=== PATIENT | female | born 1965 | race Caucasian/White ===

== ENCOUNTER 2017-10-05 08:35 | Emergency (ER) | payer OTHER ==
[~2017-10-05] VITALS: Ht 160 cm; Wt 140.2 kg
[2017-10-05 09:59] LABS: BASOPHILS % 0.5 % (0.0-2.0); EOSINOPHILS % 2.3 % (0.0-5.0); HEMATOCRIT. 34.4 % (36.0-48.0); HEMOGLOBIN. 11.4 g/dL (12.0-16.0); LYMPHOCYTES % 20.7 % (20.0-50.0); MEAN CORPUSCULAR HEMOGLOBIN 26.7 pg (28.0-32.0); MEAN CORPUSCULAR VOLUME 80.5 fL (81.0-99.0); MEAN PLATELET VOLUME 8.2 fl (7.4-10.4); MONOCYTES % 6.4 % (2.0-8.0); NEUTROPHILS % 70.1 % (40.0-76.0); PLATELET 247 x1000/uL (130-400); RED BLOOD CELL COUNT 4.27 mill/uL (4.2-5.4); RED CELL DISTRIBUTION WIDTH 16.1 % (11.6-14.6)
[2017-10-05 10:07] LABS: CHLORIDE 108 mEq/L (98-107)
[2017-10-05 10:08] LABS: INR 1.1; PARTIAL THROMBOPLASTIN TIME 26.3 sec (23.4-31.0); PROTHROMBIN TIME 10.9 sec (9.4-11.6)
[2017-10-05 10:16] LABS: HCG SCREEN NEGATIVE
[2017-10-05] MEDS ORDERED: IOHEXOL-350 100 ML BOTTLE ONE (11:40)
[2017-10-05 13:17] VITALS: BP 131/74
== END 2017-10-05 14:05 | disposition short-term general hospital (02) ==
LOC: ER 09:12
DX: R42 Dizziness and giddiness (principal); R47.81 Slurred speech; Z90.49 Acquired absence of other specified parts of digestive tract
CPT/HCPCS: 36415; 70496; 71045; 80053; 83880; 84484; 84703; 85025; 85610; 85730; 86850; 86900; 86901; 93005; 99285; Q9967; Z7610